=== PATIENT | female | born 1970 | race African-American/Black ===

== ENCOUNTER 2024-07-19 04:36 | Day surgery (SDC) | payer OTHER ==
[2024-07-12 14:25] VITALS: BMI 42.5
[2024-07-19 07:47] VITALS: TEMP 97.4
[2024-07-19] MEDS ORDERED: MIDAZOLAM HCL 2 MG/2 ML SINGLE DOSE VIAL ONE ×2 (08:02→08:30)
[2024-07-19 10:00] VITALS: BP 104/66; PULSE 64; RESP 23
== END 2024-07-19 10:15 | disposition home or self-care (01) ==
LOC: JASU-ENDO 04:36
PROVIDERS: ATTEND Student in an Organized Health Care Education/Training Program
PROC: 0DB68ZX Excision of Stomach, Via Natural or Artificial Opening Endoscopic, Diagnostic (ICD-10-PCS; 2024-07-19)
PROC: 0DB78ZX Excision of Stomach, Pylorus, Via Natural or Artificial Opening Endoscopic, Diagnostic (ICD-10-PCS; 2024-07-19)
PROC: 0DBN8ZX Excision of Sigmoid Colon, Via Natural or Artificial Opening Endoscopic, Diagnostic (ICD-10-PCS; principal; 2024-07-19 08:00)
DX: Z12.11 Encounter for screening for malignant neoplasm of colon (principal); K63.5 Polyp of colon; K29.50 Unspecified chronic gastritis without bleeding; K31.7 Polyp of stomach and duodenum
CPT/HCPCS: 88305-TC; 88342-TC